=== PATIENT | male | born 1965 | race Caucasian/White ===

== ENCOUNTER 2023-03-02 12:00 | Inpatient (IN) | payer MEDICARE ==
[~2023-03-02] VITALS: Ht 182.9 cm; Wt 108.9 kg
[2023-03-02 17:17] LABS: BASOPHILS # (AUTO) 0.02 K/uL (0.00-0.20); BASOPHILS % (AUTO) 0.4 % (0.0-5.0); EOSINOPHILS # (AUTO) 0.23 K/uL (0.00-0.70); EOSINOPHILS % (AUTO) 4.1 % (0.0-8.0); HEMATOCRIT 22.8 % (42-54); IMMATURE GRANULOCYTE ABSOLUTE 0.02 K/uL (0-1); LYMPHOCYTES # (AUTO) 0.8 K/uL (1.0-4.8); LYMPHOCYTES % (AUTO) 14.7 % (21.0-51.0); MEAN CORPUSCULAR HEMOGLOBIN 30.3 pg (27.0-33.0); MEAN CORPUSCULAR HGB CONC 32.5 g/dL (32.0-36.0); MEAN CORPUSCULAR VOLUME 93.4 fL (79-99); MONOCYTES # (AUTO) 0.4 K/uL (0.1-1.0); MONOCYTES % (AUTO) 7.6 % (3.0-13.0); NEUTROPHILS # (AUTO) 4.1 K/uL (1.8-7.7); NEUTROPHILS % (AUTO) 72.8 % (40.0-77.0); PLATELET COUNT (AUTO) 113 K/uL (130-400); RED BLOOD CELL COUNT(AUTO) 2.44 MIL/uL (4.50-6.20); RED CELL DISTRIBUTION WIDTH 15.1 % (11.0-15.5); WHITE BLOOD COUNT (AUTO) 5.7 K/uL (4.8-10.8)
[2023-03-02 17:28] LABS: INR 0.98 (0.85-1.15); PROTHROMBIN TIME 11.4 SEC (9.6-11.6)
[2023-03-02 17:29] LABS: PARTIAL THROMBOPLASTIN TIME 28.5 SEC (26.3-35.5)
[2023-03-02 17:31] LABS: ALBUMIN 2.9 g/dL (3.5-5.0); BILIRUBIN,TOTAL 0.4 mg/dL (0.2-1.0); POTASSIUM 5.2 mmol/L (3.5-5.1); TOTAL PROTEIN, SERUM 6.1 g/dL (6.0-8.3)
[2023-03-02 17:38] LABS: CREATININE 13.9 mg/dL (0.5-1.5)
[2023-03-02 17:58] VITALS: BP 173/88; PULSE 93; RESP 17
[2023-03-02] MEDS ORDERED: CLON0.1T PO (18:08)
[2023-03-02] MEDS ORDERED: DOCU-116 PO (18:08)
[2023-03-02] MEDS ORDERED: FURO40TA5 PO (18:08)
[2023-03-02] MEDS ORDERED: SEVE800T27 PO (18:08)
[2023-03-02] MEDS ORDERED: DIPH25CA85 PO (18:08)
[2023-03-02] MEDS ORDERED: INSLAN SQ (18:08)
[2023-03-02] MEDS ORDERED: TAMS-1 PO (18:09)
[2023-03-06] VITALS (12 sets, daily range): BP systolic 151–199; BP diastolic 78–96; PULSE 87–94; RESP 18–19; O2SAT 96
[2023-03-06] MEDS ORDERED: BUPIVACAINE/PF 0.5% 30ML VIAL ONE (07:24)
[2023-03-06] MEDS ORDERED: LIDOCAINE 1%-EPI 1:100,000 20 ML VIAL IJ ONE (07:25)
[2023-03-06 07:29] LABS: POTASSIUM 5.3 mmol/L (3.5-5.1)
[2023-03-06] MEDS ORDERED: 0.9% NACL 500ML IV.SOLN 500 ML IV ONE (07:29)
[2023-03-06] MEDS ORDERED: MEROPENEM 1 GM VIAL ONE (07:29)
[2023-03-06] MEDS ORDERED: SUCCINYLCHOLINE 200MG/10ML SYR ONE (07:41)
[2023-03-06] MEDS ORDERED: LIDOCAINE PF 100MG/5ML (2%) SYRINGE 5ML ONE (07:41)
[2023-03-06] MEDS ORDERED: PROPOFOL 10 MG/ML 20ML VIAL IV ONE (07:42)
[2023-03-06] MEDS ORDERED: ROCURONIUM 10MG/1ML SYR 10 MG/ML ML ONE (07:42)
[2023-03-06] MEDS ORDERED: GLYCOPYRROLATE 1 MG/5 ML SYRINGE ONE (07:42)
[2023-03-06] MEDS ORDERED: FENTANYL CITRATE PF 50 MCG/1 ML 2ML VIAL ONE (07:42)
[2023-03-06] MEDS ORDERED: ONDANSETRON 4MG INJ ONE (08:09)
[2023-03-06] MEDS ORDERED: FAMOTIDINE 20MG VIAL IV ONE (08:09)
[2023-03-06] MEDS ORDERED: HEPARIN 1,000 UNIT VIAL ONE (13:40)
[2023-03-06] MEDS ORDERED: LIDOCAINE HCL 1% MDV 50ML VIAL ONE (13:40)
[2023-03-06] MEDS ORDERED: GLUCAGON 1MG KIT 1 MG ML IM PRN (16:30)
[2023-03-06] MEDS ORDERED: DEXTROSE 50%-WATER 50 ML DISP.SYRIN IV PRN (16:30)
[2023-03-06] MEDS ORDERED: GUAIFENESIN-DM 200/20 MG 10 ML PO PRN (16:30)
[2023-03-06] MEDS ORDERED: ACETAMINOPHEN 325 MG TAB PO PRN ×2 (16:30)
[2023-03-06] MEDS ORDERED: MAG/ALUM/SIMETH 30 ML UDCUP PO PRN (16:30)
[2023-03-06] MEDS ORDERED: HYDROCODONE/ACETAMINOPHEN 5/325 MG TAB PO PRN ×2 (16:30)
[2023-03-06] MEDS ORDERED: DiphenhydrAMINE HCL 50 MG/ML VIAL IV PRN (16:30)
[2023-03-06] MEDS ORDERED: LACTULOSE 20 GM/30 ML UDCUP PO PRN (16:30)
[2023-03-06] MEDS ORDERED: HYDROMORPHONE 1 MG INJ IV PRN (16:30)
[2023-03-06] MEDS ORDERED: HYDRALAZINE 20MG/ML VIAL IV PRN (16:30)
[2023-03-06] MEDS ORDERED: NITROGLYCERIN 0.4 MG SL TAB SL PRN (16:30)
[2023-03-06] MEDS: INSULIN HUMULIN R 100 UNIT/ML 3ML SQ SCH ×2 (18:52→20:56)
[2023-03-06] MEDS: AMLODIPINE 5 MG TAB PO SCH (18:56)
[2023-03-06] MEDS: FAMOTIDINE 20MG TAB PO SCH (20:55)
[2023-03-06] MEDS: HYDRALAZINE 25MG TABLET PO SCH (20:55)
[2023-03-06] MEDS ORDERED: FAMOTIDINE 20MG VIAL IV PRN (21:00)
[2023-03-06] MEDS: HEPARIN 5,000 UNIT VIAL SQ SCH ×2 (21:08→21:30)
[2023-03-07] VITALS (22 sets, daily range): BP systolic 138–175; BP diastolic 64–93; PULSE 87–101; RESP 16–19; TEMP 98–98.5; O2SAT 97–100
[2023-03-07] MEDS: HEPARIN 5,000 UNIT VIAL SQ SCH ×3 (06:09→22:31)
[2023-03-07] MEDS: INSULIN HUMULIN R 100 UNIT/ML 3ML SQ SCH ×4 (06:09→21:00)
[2023-03-07 06:27] LABS: BASOPHILS # (AUTO) 0.02 K/uL (0.00-0.20); BASOPHILS % (AUTO) 0.3 % (0.0-5.0); EOSINOPHILS # (AUTO) 0.12 K/uL (0.00-0.70); EOSINOPHILS % (AUTO) 1.5 % (0.0-8.0); HEMATOCRIT 23.3 % (42-54); IMMATURE GRANULOCYTE ABSOLUTE 0.03 K/uL (0-1); LYMPHOCYTES % (AUTO) 13.4 % (21.0-51.0); MEAN CORPUSCULAR HEMOGLOBIN 28.3 pg (27.0-33.0); MEAN CORPUSCULAR HGB CONC 32.6 g/dL (32.0-36.0); MEAN CORPUSCULAR VOLUME 86.6 fL (79-99); MONOCYTES # (AUTO) 0.5 K/uL (0.1-1.0); MONOCYTES % (AUTO) 6.2 % (3.0-13.0); NEUTROPHILS # (AUTO) 6.1 K/uL (1.8-7.7); NEUTROPHILS % (AUTO) 78.2 % (40.0-77.0); PLATELET COUNT (AUTO) 129 K/uL (130-400); RED BLOOD CELL COUNT(AUTO) 2.69 MIL/uL (4.50-6.20); RED CELL DISTRIBUTION WIDTH 17.9 % (11.0-15.5); WHITE BLOOD COUNT (AUTO) 7.8 K/uL (4.8-10.8)
[2023-03-07 06:46] LABS: ALBUMIN 3.1 g/dL (3.5-5.0); BILIRUBIN,TOTAL 0.6 mg/dL (0.2-1.0); MAGNESIUM 2.5 mg/dL (1.80-2.40); POTASSIUM 5.5 mmol/L (3.5-5.1); THYROID STIMULATING HORMONE 8.13 uIU/mL (0.36-3.74); TOTAL PROTEIN, SERUM 6.3 g/dL (6.0-8.3)
[2023-03-07 06:55] LABS: CREATININE 13.8 mg/dL (0.5-1.5)
[2023-03-07 07:08] LABS: % IRON SATURATION 29.1 % (30-44)
[2023-03-07 09:24] LABS: ALBUMIN 3.2 g/dL (3.5-5.0)
[2023-03-07 09:26] LABS: CREATININE 13.7 mg/dL (0.5-1.5)
[2023-03-07] MEDS ORDERED: HEPARIN 5,000 UNIT VIAL IJ PRN (12:30)
[2023-03-07] MEDS: SEVELAMER HCL 800 MG TABLET PO SCH ×2 (13:40→17:09)
[2023-03-07] MEDS: HYDRALAZINE 25MG TABLET PO SCH ×3 (13:40→20:09)
[2023-03-07] MEDS: AMLODIPINE 5 MG TAB PO SCH (13:40)
[2023-03-07] MEDS: EPOETIN ALFA-EPBX (NON-ESRD) 10,000 UNIT/ML VIAL SQ SCH (17:09)
[2023-03-07 21:41] LABS: HEPATITIS B SURFACE ANTIGEN Non-Reactive (Nonreactive)
[2023-03-08] VITALS (23 sets, daily range): BP systolic 141–180; BP diastolic 71–96; PULSE 87–94; RESP 16–18; TEMP 97.9–98.1; O2SAT 95–100
[2023-03-08 05:41] LABS: BASOPHILS # (AUTO) 0.02 K/uL (0.00-0.20); BASOPHILS % (AUTO) 0.3 % (0.0-5.0); EOSINOPHILS # (AUTO) 0.11 K/uL (0.00-0.70); EOSINOPHILS % (AUTO) 1.8 % (0.0-8.0); HEMATOCRIT 23.9 % (42-54); IMMATURE GRANULOCYTE ABSOLUTE 0.03 K/uL (0-1); LYMPHOCYTES # (AUTO) 0.8 K/uL (1.0-4.8); LYMPHOCYTES % (AUTO) 13.5 % (21.0-51.0); MEAN CORPUSCULAR HEMOGLOBIN 28.6 pg (27.0-33.0); MEAN CORPUSCULAR HGB CONC 32.6 g/dL (32.0-36.0); MEAN CORPUSCULAR VOLUME 87.5 fL (79-99); MONOCYTES # (AUTO) 0.5 K/uL (0.1-1.0); MONOCYTES % (AUTO) 7.6 % (3.0-13.0); NEUTROPHILS # (AUTO) 4.7 K/uL (1.8-7.7); NEUTROPHILS % (AUTO) 76.3 % (40.0-77.0); PLATELET COUNT (AUTO) 126 K/uL (130-400); RED BLOOD CELL COUNT(AUTO) 2.73 MIL/uL (4.50-6.20); RED CELL DISTRIBUTION WIDTH 17.4 % (11.0-15.5); WHITE BLOOD COUNT (AUTO) 6.2 K/uL (4.8-10.8)
[2023-03-08] MEDS: HEPARIN 5,000 UNIT VIAL SQ SCH ×2 (06:07→16:38)
[2023-03-08 06:22] LABS: ALBUMIN 3.2 g/dL (3.5-5.0); BILIRUBIN,TOTAL 0.6 mg/dL (0.2-1.0); PHOSPHORUS 9.3 mg/dL (2.5-4.9); POTASSIUM 4.5 mmol/L (3.5-5.1); TOTAL PROTEIN, SERUM 6.3 g/dL (6.0-8.3)
[2023-03-08 06:28] LABS: CREATININE 10.9 mg/dL (0.5-1.5)
[2023-03-08] MEDS: INSULIN HUMULIN R 100 UNIT/ML 3ML SQ SCH ×4 (06:58→21:12)
[2023-03-08] MEDS: AMLODIPINE 5 MG TAB PO SCH (08:39)
[2023-03-08] MEDS: SEVELAMER HCL 800 MG TABLET PO SCH ×3 (08:39→16:48)
[2023-03-08] MEDS: HYDRALAZINE 25MG TABLET PO SCH ×2 (08:39→21:11)
[2023-03-08] MEDS: ONDANSETRON 4MG INJ IV PRN (12:27)
[2023-03-08] MEDS ORDERED: HEPARIN 5,000 UNIT VIAL IJ STA (15:11)
[2023-03-08] MEDS: FAMOTIDINE 20MG TAB PO SCH (21:11)
[2023-03-09] VITALS (21 sets, daily range): BP systolic 137–173; BP diastolic 72–96; PULSE 82–96; RESP 16–20; TEMP 98.1–98.2; O2SAT 96–98
[2023-03-09] MEDS ORDERED: HEPARIN 5,000 UNIT VIAL SQ SCH
[2023-03-09 06:05] LABS: BASOPHILS # (AUTO) 0.03 K/uL (0.00-0.20); BASOPHILS % (AUTO) 0.4 % (0.0-5.0); EOSINOPHILS # (AUTO) 0.16 K/uL (0.00-0.70); EOSINOPHILS % (AUTO) 2.4 % (0.0-8.0); HEMATOCRIT 23.4 % (42-54); IMMATURE GRANULOCYTE ABSOLUTE 0.02 K/uL (0-1); LYMPHOCYTES # (AUTO) 1.1 K/uL (1.0-4.8); MEAN CORPUSCULAR HGB CONC 32.5 g/dL (32.0-36.0); MEAN CORPUSCULAR VOLUME 89.3 fL (79-99); MONOCYTES # (AUTO) 0.6 K/uL (0.1-1.0); MONOCYTES % (AUTO) 8.9 % (3.0-13.0); NEUTROPHILS # (AUTO) 4.9 K/uL (1.8-7.7); PLATELET COUNT (AUTO) 126 K/uL (130-400); RED BLOOD CELL COUNT(AUTO) 2.62 MIL/uL (4.50-6.20); RED CELL DISTRIBUTION WIDTH 17.2 % (11.0-15.5); WHITE BLOOD COUNT (AUTO) 6.8 K/uL (4.8-10.8)
[2023-03-09] MEDS: INSULIN HUMULIN R 100 UNIT/ML 3ML SQ SCH ×4 (06:28→20:36)
[2023-03-09 06:33] LABS: ALBUMIN 2.9 g/dL (3.5-5.0); BILIRUBIN,TOTAL 0.5 mg/dL (0.2-1.0); POTASSIUM 4.1 mmol/L (3.5-5.1)
[2023-03-09 06:35] LABS: CREATININE 8.6 mg/dL (0.5-1.5)
[2023-03-09] MEDS: SEVELAMER HCL 800 MG TABLET PO SCH ×3 (08:50→17:35)
[2023-03-09] MEDS: HEPARIN 5,000 UNIT VIAL SQ SCH ×2 (08:52→16:00)
[2023-03-09] MEDS: HYDRALAZINE 25MG TABLET PO SCH ×3 (09:00→20:37)
[2023-03-09] MEDS: AMLODIPINE 5 MG TAB PO SCH (09:00)
[2023-03-09] MEDS ORDERED: HEPARIN 5,000 UNIT VIAL IJ ONE (14:00)
[2023-03-09] MEDS: EPOETIN ALFA-EPBX (NON-ESRD) 10,000 UNIT/ML VIAL SQ SCH (18:11)
[2023-03-10] VITALS (8 sets, daily range): BP systolic 153–160; BP diastolic 73–101; PULSE 87–100; RESP 18–20; O2SAT 98
[2023-03-10] MEDS: HEPARIN 5,000 UNIT VIAL SQ SCH ×3 (01:46→16:54)
[2023-03-10] MEDS: INSULIN HUMULIN R 100 UNIT/ML 3ML SQ SCH ×4 (05:26→20:28)
[2023-03-10 05:39] LABS: BASOPHILS # (AUTO) 0.02 K/uL (0.00-0.20); BASOPHILS % (AUTO) 0.3 % (0.0-5.0); EOSINOPHILS # (AUTO) 0.22 K/uL (0.00-0.70); EOSINOPHILS % (AUTO) 3.4 % (0.0-8.0); HEMATOCRIT 23.2 % (42-54); IMMATURE GRANULOCYTE ABSOLUTE 0.02 K/uL (0-1); LYMPHOCYTES # (AUTO) 0.9 K/uL (1.0-4.8); LYMPHOCYTES % (AUTO) 13.6 % (21.0-51.0); MEAN CORPUSCULAR HEMOGLOBIN 28.6 pg (27.0-33.0); MEAN CORPUSCULAR HGB CONC 32.3 g/dL (32.0-36.0); MEAN CORPUSCULAR VOLUME 88.5 fL (79-99); MONOCYTES # (AUTO) 0.6 K/uL (0.1-1.0); MONOCYTES % (AUTO) 9.8 % (3.0-13.0); NEUTROPHILS # (AUTO) 4.7 K/uL (1.8-7.7); NEUTROPHILS % (AUTO) 72.6 % (40.0-77.0); PLATELET COUNT (AUTO) 124 K/uL (130-400); RED BLOOD CELL COUNT(AUTO) 2.62 MIL/uL (4.50-6.20); RED CELL DISTRIBUTION WIDTH 16.7 % (11.0-15.5); WHITE BLOOD COUNT (AUTO) 6.5 K/uL (4.8-10.8)
[2023-03-10 06:15] LABS: CREATININE 7.1 mg/dL (0.5-1.5); PHOSPHORUS 5.5 mg/dL (2.5-4.9); POTASSIUM 3.6 mmol/L (3.5-5.1)
[2023-03-10] MEDS: HYDRALAZINE 25MG TABLET PO SCH ×3 (09:04→20:30)
[2023-03-10] MEDS: SEVELAMER HCL 800 MG TABLET PO SCH ×3 (09:04→16:55)
[2023-03-10] MEDS: AMLODIPINE 5 MG TAB PO SCH (09:04)
[2023-03-10] MEDS: FAMOTIDINE 20MG TAB PO SCH (20:29)
[2023-03-11] VITALS (9 sets, daily range): BP systolic 127–157; BP diastolic 71–85; PULSE 87–98; RESP 19–20; O2SAT 97–98
[2023-03-11] MEDS: HEPARIN 5,000 UNIT VIAL SQ SCH ×4 (00:51→23:58)
[2023-03-11] MEDS: INSULIN HUMULIN R 100 UNIT/ML 3ML SQ SCH ×4 (05:42→20:22)
[2023-03-11 06:10] LABS: BASOPHILS # (AUTO) 0.02 K/uL (0.00-0.20); BASOPHILS % (AUTO) 0.3 % (0.0-5.0); EOSINOPHILS # (AUTO) 0.23 K/uL (0.00-0.70); EOSINOPHILS % (AUTO) 3.7 % (0.0-8.0); HEMATOCRIT 22.8 % (42-54); IMMATURE GRANULOCYTE ABSOLUTE 0.02 K/uL (0-1); LYMPHOCYTES # (AUTO) 0.8 K/uL (1.0-4.8); LYMPHOCYTES % (AUTO) 13.5 % (21.0-51.0); MEAN CORPUSCULAR HEMOGLOBIN 29.2 pg (27.0-33.0); MEAN CORPUSCULAR HGB CONC 32.9 g/dL (32.0-36.0); MEAN CORPUSCULAR VOLUME 88.7 fL (79-99); MONOCYTES # (AUTO) 0.7 K/uL (0.1-1.0); MONOCYTES % (AUTO) 10.9 % (3.0-13.0); NEUTROPHILS # (AUTO) 4.4 K/uL (1.8-7.7); NEUTROPHILS % (AUTO) 71.3 % (40.0-77.0); PLATELET COUNT (AUTO) 124 K/uL (130-400); RED BLOOD CELL COUNT(AUTO) 2.57 MIL/uL (4.50-6.20); WHITE BLOOD COUNT (AUTO) 6.1 K/uL (4.8-10.8)
[2023-03-11 06:26] LABS: PHOSPHORUS 6.2 mg/dL (2.5-4.9)
[2023-03-11] MEDS: SEVELAMER HCL 800 MG TABLET PO SCH ×3 (08:21→16:52)
[2023-03-11] MEDS: HYDRALAZINE 25MG TABLET PO SCH ×3 (08:24→20:23)
[2023-03-11] MEDS: AMLODIPINE 5 MG TAB PO SCH (08:24)
[2023-03-12] VITALS (22 sets, daily range): BP systolic 139–186; BP diastolic 64–100; PULSE 85–105; RESP 16–20; TEMP 98–98.2; O2SAT 93–97
[2023-03-12 05:03] LABS: BASOPHILS # (AUTO) 0.02 K/uL (0.00-0.20); BASOPHILS % (AUTO) 0.3 % (0.0-5.0); EOSINOPHILS # (AUTO) 0.24 K/uL (0.00-0.70); EOSINOPHILS % (AUTO) 3.9 % (0.0-8.0); HEMATOCRIT 21.4 % (42-54); IMMATURE GRANULOCYTE ABSOLUTE 0.02 K/uL (0-1); LYMPHOCYTES % (AUTO) 16.7 % (21.0-51.0); MEAN CORPUSCULAR HEMOGLOBIN 28.9 pg (27.0-33.0); MEAN CORPUSCULAR HGB CONC 31.8 g/dL (32.0-36.0); MEAN CORPUSCULAR VOLUME 91.1 fL (79-99); MONOCYTES # (AUTO) 0.7 K/uL (0.1-1.0); MONOCYTES % (AUTO) 10.6 % (3.0-13.0); NEUTROPHILS # (AUTO) 4.2 K/uL (1.8-7.7); NEUTROPHILS % (AUTO) 68.2 % (40.0-77.0); PLATELET COUNT (AUTO) 130 K/uL (130-400); RED BLOOD CELL COUNT(AUTO) 2.35 MIL/uL (4.50-6.20); RED CELL DISTRIBUTION WIDTH 17.3 % (11.0-15.5); WHITE BLOOD COUNT (AUTO) 6.1 K/uL (4.8-10.8)
[2023-03-12 05:11] LABS: PHOSPHORUS 6.5 mg/dL (2.5-4.9); POTASSIUM 3.6 mmol/L (3.5-5.1)
[2023-03-12 05:46] LABS: CREATININE 10.6 mg/dL (0.5-1.5)
[2023-03-12] MEDS: INSULIN HUMULIN R 100 UNIT/ML 3ML SQ SCH ×4 (06:09→21:30)
[2023-03-12] MEDS ORDERED: EPOETIN ALFA-EPBX (NON-ESRD) 10,000 UNIT/ML VIAL SQ SCH (08:00)
[2023-03-12] MEDS: DIPHENHYDRAMINE HCL 25 MG CAPSULE PO PRN (09:29)
[2023-03-12] MEDS: AMLODIPINE 5 MG TAB PO SCH (11:12)
[2023-03-12] MEDS: HYDRALAZINE 25MG TABLET PO SCH ×3 (11:13→21:29)
[2023-03-12] MEDS: SEVELAMER HCL 800 MG TABLET PO SCH ×3 (11:13→17:42)
[2023-03-12] MEDS: HEPARIN 5,000 UNIT VIAL SQ SCH ×3 (11:22→23:24)
[2023-03-12] MEDS ORDERED: HEPARIN 5,000 UNIT VIAL IV SCH (12:00)
[2023-03-12] MEDS: EPOETIN ALFA-EPBX (NON-ESRD) 10,000 UNIT/ML VIAL SQ SCH (17:41)
[2023-03-12] MEDS ORDERED: PEG 3350/NA SULF,BICARB,CL/KCL 4000 ML SOLN PO ONE (17:50)
[2023-03-12] MEDS ORDERED: NEOMYCIN SULFATE 500 MG TAB PO SCH ×2 (19:00→23:00)
[2023-03-12] MEDS: METRONIDAZOLE 500 MG TABLET PO SCH ×2 (19:40→20:27)
[2023-03-12] MEDS: FAMOTIDINE 20MG TAB PO SCH (21:28)
[2023-03-12] MEDS ORDERED: METRONIDAZOLE 500 MG TABLET PO SCH (23:00)
[2023-03-12] MEDS: ONDANSETRON 4MG INJ IV PRN (23:23)
[2023-03-13 04:00] VITALS: BP 140/69; PULSE 101; RESP 18
[2023-03-13 05:11] LABS: HEMATOCRIT 25.2 % (42-54); MEAN CORPUSCULAR HEMOGLOBIN 28.9 pg (27.0-33.0); MEAN CORPUSCULAR HGB CONC 32.1 g/dL (32.0-36.0); RED BLOOD CELL COUNT(AUTO) 2.8 MIL/uL (4.50-6.20); RED CELL DISTRIBUTION WIDTH 16.9 % (11.0-15.5); WHITE BLOOD COUNT (AUTO) 6.9 K/uL (4.8-10.8)
[2023-03-13 05:20] LABS: HEMOGLOBIN A1C 6.2 % (4.0-6.0)
[2023-03-13 05:24] LABS: ALBUMIN 3.1 g/dL (3.5-5.0); BILIRUBIN,TOTAL 0.5 mg/dL (0.2-1.0); POTASSIUM 3.6 mmol/L (3.5-5.1); TOTAL PROTEIN, SERUM 5.9 g/dL (6.0-8.3)
[2023-03-13] MEDS: INSULIN HUMULIN R 100 UNIT/ML 3ML SQ SCH ×4 (06:01→21:00)
[2023-03-13 07:51] VITALS: BP 106/53; PULSE 101; RESP 18
[2023-03-13 08:00] VITALS: O2SAT 99
[2023-03-13] MEDS: SEVELAMER HCL 800 MG TABLET PO SCH ×3 (08:00→17:00)
[2023-03-13] MEDS: HEPARIN 5,000 UNIT VIAL SQ SCH ×3 (08:00→23:10)
[2023-03-13] MEDS: HYDRALAZINE 25MG TABLET PO SCH ×3 (09:00→19:58)
[2023-03-13] MEDS: AMLODIPINE 5 MG TAB PO SCH (09:00)
[2023-03-13 11:11] VITALS: BP 151/74; PULSE 94; RESP 17
[2023-03-13 14:03] LABS: BASOPHILS # (AUTO) 0.03 K/uL (0.00-0.20); BASOPHILS % (AUTO) 0.5 % (0.0-5.0); EOSINOPHILS # (AUTO) 0.21 K/uL (0.00-0.70); EOSINOPHILS % (AUTO) 3.3 % (0.0-8.0); HEMATOCRIT 27.3 % (42-54); IMMATURE GRANULOCYTE ABSOLUTE 0.03 K/uL (0-1); LYMPHOCYTES # (AUTO) 0.9 K/uL (1.0-4.8); LYMPHOCYTES % (AUTO) 13.9 % (21.0-51.0); MEAN CORPUSCULAR HEMOGLOBIN 28.6 pg (27.0-33.0); MEAN CORPUSCULAR HGB CONC 31.5 g/dL (32.0-36.0); MEAN CORPUSCULAR VOLUME 90.7 fL (79-99); MONOCYTES # (AUTO) 0.6 K/uL (0.1-1.0); MONOCYTES % (AUTO) 8.8 % (3.0-13.0); NEUTROPHILS # (AUTO) 4.6 K/uL (1.8-7.7); PLATELET COUNT (AUTO) 150 K/uL (130-400); RED BLOOD CELL COUNT(AUTO) 3.01 MIL/uL (4.50-6.20); RED CELL DISTRIBUTION WIDTH 17.2 % (11.0-15.5); WHITE BLOOD COUNT (AUTO) 6.4 K/uL (4.8-10.8)
[2023-03-13 14:20] LABS: ALBUMIN 3.4 g/dL (3.5-5.0); BILIRUBIN,TOTAL 0.5 mg/dL (0.2-1.0); PHOSPHORUS 5.9 mg/dL (2.5-4.9); POTASSIUM 3.8 mmol/L (3.5-5.1); TOTAL PROTEIN, SERUM 6.3 g/dL (6.0-8.3)
[2023-03-13 14:25] LABS: CREATININE 8.8 mg/dL (0.5-1.5)
[2023-03-13 16:28] VITALS: BP 160/70; PULSE 85; RESP 18
[2023-03-13] MEDS: DIPHENHYDRAMINE HCL 25 MG CAPSULE PO PRN (19:58)
[2023-03-13 20:00] VITALS: BP 151/77; PULSE 94; RESP 19; O2SAT 95
[2023-03-14] VITALS (42 sets, daily range): BP systolic 120–185; BP diastolic 61–90; PULSE 74–96; RESP 9–19; TEMP 96.8–97; O2SAT 98–99
[2023-03-14 01:49] LABS: SARS-CoV-2, RNA, NAAT NEGATIVE SARS CoV-2 (NEGATIVE)
[2023-03-14] MEDS: INSULIN HUMULIN R 100 UNIT/ML 3ML SQ SCH ×4 (06:07→20:06)
[2023-03-14 06:18] LABS: MEAN CORPUSCULAR HGB CONC 31.9 g/dL (32.0-36.0); MEAN CORPUSCULAR VOLUME 90.9 fL (79-99); RED BLOOD CELL COUNT(AUTO) 2.86 MIL/uL (4.50-6.20); WHITE BLOOD COUNT (AUTO) 6.6 K/uL (4.8-10.8)
[2023-03-14] MEDS ORDERED: SUCCINYLCHOLINE 200MG/10ML SYR ONE (06:27)
[2023-03-14] MEDS ORDERED: LIDOCAINE PF 100MG/5ML (2%) SYRINGE 5ML ONE (06:27)
[2023-03-14] MEDS ORDERED: DEXAMETHASONE SOD PHOSPHATE 10MG/ML 1ML VIAL ONE (06:27)
[2023-03-14] MEDS ORDERED: PROPOFOL 10 MG/ML 20ML VIAL IV ONE (06:28)
[2023-03-14] MEDS ORDERED: ONDANSETRON 4MG INJ ONE ×2 (06:28→11:31)
[2023-03-14] MEDS ORDERED: GLYCOPYRROLATE 1 MG/5 ML SYRINGE ONE (06:28)
[2023-03-14] MEDS ORDERED: MIDAZOLAM HCL 1 MG/ML 2ML VIAL ONE (06:29)
[2023-03-14] MEDS ORDERED: ROCURONIUM 10MG/1ML SYR 10 MG/ML ML ONE (06:29)
[2023-03-14] MEDS ORDERED: NEOSTIGMINE 5MG/5ML SYR IV ONE (06:29)
[2023-03-14] MEDS ORDERED: FENTANYL CITRATE PF 50 MCG/1 ML 2ML VIAL ONE ×2 (06:29→08:06)
[2023-03-14] MEDS ORDERED: DEXAMETHASONE SOD PHOSPHATE 4 MG/ML 1ML VIAL ONE (06:33)
[2023-03-14] MEDS ORDERED: ROPIVACAINE 0.5% 5MG/ML 30ML IJ ONE (06:42)
[2023-03-14 06:50] LABS: ALBUMIN 3.2 g/dL (3.5-5.0); BILIRUBIN,TOTAL 0.5 mg/dL (0.2-1.0); PHOSPHORUS 6.2 mg/dL (2.5-4.9); POTASSIUM 3.9 mmol/L (3.5-5.1); TOTAL PROTEIN, SERUM 6.2 g/dL (6.0-8.3)
[2023-03-14] MEDS ORDERED: PHENYLEPHRINE HCL 10 MG/ML 1ML VIAL IV ONE (06:55)
[2023-03-14] MEDS ORDERED: ALBUMIN (HUMAN) 25% 50 ML IV ONE (07:03)
[2023-03-14] MEDS ORDERED: LIDOCAINE HCL 1% MDV 50ML VIAL ONE (07:07)
[2023-03-14] MEDS ORDERED: BUPIVACAINE/PF 0.5% 30ML VIAL ONE (07:07)
[2023-03-14] MEDS ORDERED: INDOCYANINE GREEN 25 MG VIAL IJ ONE (07:10)
[2023-03-14] MEDS ORDERED: MEROPENEM 1 GM VIAL ONE (07:51)
[2023-03-14] MEDS: SEVELAMER HCL 800 MG TABLET PO SCH ×3 (08:00→16:53)
[2023-03-14] MEDS: HEPARIN 5,000 UNIT VIAL SQ SCH ×2 (08:00→16:49)
[2023-03-14] MEDS: AMLODIPINE 5 MG TAB PO SCH (09:00)
[2023-03-14] MEDS: HYDRALAZINE 25MG TABLET PO SCH ×3 (09:00→20:04)
[2023-03-14] MEDS ORDERED: SUGAMMADEX SODIUM 200 MG/2 ML VIAL IV ONE (10:45)
[2023-03-14] MEDS ORDERED: EPHEDRINE SULFATE 50 MG/ML AMPULE ONE (10:55)
[2023-03-14] MEDS ORDERED: OXYCODONE HCL 20 MG/ML ORAL.CONC 0.25ML PO PRN (11:00)
[2023-03-14] MEDS ORDERED: MEPERIDINE-PF 25 MG/ML SYG ONE (11:31)
[2023-03-14] MEDS: EPOETIN ALFA-EPBX (NON-ESRD) 10,000 UNIT/ML VIAL SQ SCH (16:49)
[2023-03-14] MEDS: HYDROMORPHONE 0.5 MG SYG (0.5MG/0.5ML) IVP PRN (17:03)
[2023-03-14] MEDS: FAMOTIDINE 20MG TAB PO SCH (20:03)
[2023-03-14] MEDS ORDERED: HEPARIN 5,000 UNIT VIAL SQ SCH (22:00)
[2023-03-15] VITALS (7 sets, daily range): BP systolic 104–158; BP diastolic 58–70; PULSE 82–94; RESP 17–20; O2SAT 96–99
[2023-03-15] MEDS: HEPARIN 5,000 UNIT VIAL SQ SCH ×3 (00:45→17:08)
[2023-03-15] MEDS: ONDANSETRON 4MG INJ IV PRN (04:12)
[2023-03-15 05:16] LABS: HEMATOCRIT 25.8 % (42-54); MEAN CORPUSCULAR HEMOGLOBIN 29.1 pg (27.0-33.0); MEAN CORPUSCULAR HGB CONC 31.8 g/dL (32.0-36.0); MEAN CORPUSCULAR VOLUME 91.5 fL (79-99); RED BLOOD CELL COUNT(AUTO) 2.82 MIL/uL (4.50-6.20); RED CELL DISTRIBUTION WIDTH 17.2 % (11.0-15.5); WHITE BLOOD COUNT (AUTO) 9.2 K/uL (4.8-10.8)
[2023-03-15 05:37] LABS: BILIRUBIN,TOTAL 0.5 mg/dL (0.2-1.0); TOTAL PROTEIN, SERUM 5.7 g/dL (6.0-8.3)
[2023-03-15] MEDS: INSULIN HUMULIN R 100 UNIT/ML 3ML SQ SCH ×4 (06:00→21:31)
[2023-03-15] MEDS: HYDRALAZINE 25MG TABLET PO SCH ×3 (08:44→21:00)
[2023-03-15] MEDS: SEVELAMER HCL 800 MG TABLET PO SCH ×3 (08:45→17:07)
[2023-03-15] MEDS: AMLODIPINE 5 MG TAB PO SCH (08:46)
[2023-03-15] MEDS: HYDROMORPHONE 0.5 MG SYG (0.5MG/0.5ML) IVP PRN ×2 (11:10→18:05)
[2023-03-15] MEDS: DIPHENHYDRAMINE HCL 25 MG CAPSULE PO PRN (22:05)
[2023-03-16] VITALS (21 sets, daily range): BP systolic 131–171; BP diastolic 65–87; PULSE 87–101; RESP 16–20; TEMP 97–97.5; O2SAT 89
[2023-03-16] MEDS: HEPARIN 5,000 UNIT VIAL SQ SCH ×3 (00:41→16:41)
[2023-03-16 05:07] LABS: BASOPHILS # (AUTO) 0.02 K/uL (0.00-0.20); BASOPHILS % (AUTO) 0.2 % (0.0-5.0); EOSINOPHILS # (AUTO) 0.22 K/uL (0.00-0.70); EOSINOPHILS % (AUTO) 2.6 % (0.0-8.0); HEMATOCRIT 25.8 % (42-54); IMMATURE GRANULOCYTE ABSOLUTE 0.04 K/uL (0-1); LYMPHOCYTES # (AUTO) 0.9 K/uL (1.0-4.8); LYMPHOCYTES % (AUTO) 10.7 % (21.0-51.0); MEAN CORPUSCULAR HEMOGLOBIN 29.1 pg (27.0-33.0); MEAN CORPUSCULAR HGB CONC 31.8 g/dL (32.0-36.0); MEAN CORPUSCULAR VOLUME 91.5 fL (79-99); MONOCYTES # (AUTO) 0.7 K/uL (0.1-1.0); MONOCYTES % (AUTO) 8.3 % (3.0-13.0); NEUTROPHILS # (AUTO) 6.5 K/uL (1.8-7.7); NEUTROPHILS % (AUTO) 77.7 % (40.0-77.0); PLATELET COUNT (AUTO) 152 K/uL (130-400); RED BLOOD CELL COUNT(AUTO) 2.82 MIL/uL (4.50-6.20); RED CELL DISTRIBUTION WIDTH 17.8 % (11.0-15.5); WHITE BLOOD COUNT (AUTO) 8.4 K/uL (4.8-10.8)
[2023-03-16 05:23] LABS: BILIRUBIN,TOTAL 0.5 mg/dL (0.2-1.0); PHOSPHORUS 6.3 mg/dL (2.5-4.9); POTASSIUM 3.8 mmol/L (3.5-5.1); TOTAL PROTEIN, SERUM 5.9 g/dL (6.0-8.3)
[2023-03-16 05:25] LABS: CREATININE 9.4 mg/dL (0.5-1.5)
[2023-03-16] MEDS: INSULIN HUMULIN R 100 UNIT/ML 3ML SQ SCH ×3 (06:01→16:42)
[2023-03-16] MEDS: AMLODIPINE 5 MG TAB PO SCH (09:16)
[2023-03-16] MEDS: SEVELAMER HCL 800 MG TABLET PO SCH ×4 (09:16→16:30)
[2023-03-16] MEDS: HYDRALAZINE 25MG TABLET PO SCH ×2 (09:17→13:43)
[2023-03-16] MEDS ORDERED: AMLO-258 PO (11:06)
[2023-03-16] MEDS: EPOETIN ALFA-EPBX (NON-ESRD) 10,000 UNIT/ML VIAL SQ SCH (16:30)
== END 2023-03-16 17:00 | disposition home or self-care (01) | DRG 329 ==
LOC: DAHIP 03-06 06:19 → 3DH 03-06 16:16
PROVIDERS: ADMIT Hospitalist; ATTEND Hospitalist
PROC: 0JH63XZ Insertion of Tunneled Vascular Access Device into Chest Subcutaneous Tissue and Fascia, Percutaneous Approach (ICD-10-PCS; 2023-03-06)
PROC: 02H633Z Insertion of Infusion Device into Right Atrium, Percutaneous Approach (ICD-10-PCS; 2023-03-06)
PROC: B5181ZA Fluoroscopy of Superior Vena Cava using Low Osmolar Contrast, Guidance (ICD-10-PCS; 2023-03-06)
PROC: B548ZZA Ultrasonography of Superior Vena Cava, Guidance (ICD-10-PCS; 2023-03-06)
PROC: 30233N1 Transfusion of Nonautologous Red Blood Cells into Peripheral Vein, Percutaneous Approach (ICD-10-PCS; 2023-03-06)
PROC: 5A1D70Z Performance of Urinary Filtration, Intermittent, Less than 6 Hours Per Day (ICD-10-PCS; 2023-03-07)
PROC: 5A1D70Z Performance of Urinary Filtration, Intermittent, Less than 6 Hours Per Day (ICD-10-PCS; 2023-03-08)
PROC: 5A1D70Z Performance of Urinary Filtration, Intermittent, Less than 6 Hours Per Day (ICD-10-PCS; 2023-03-09)
PROC: 5A1D70Z Performance of Urinary Filtration, Intermittent, Less than 6 Hours Per Day (ICD-10-PCS; 2023-03-12)
PROC: 8E0W4CZ Robotic Assisted Procedure of Trunk Region, Percutaneous Endoscopic Approach (ICD-10-PCS; 2023-03-14)
PROC: 5A1D70Z Performance of Urinary Filtration, Intermittent, Less than 6 Hours Per Day (ICD-10-PCS; 2023-03-14)
PROC: 0DTF4ZZ Resection of Right Large Intestine, Percutaneous Endoscopic Approach (ICD-10-PCS; principal; 2023-03-14 07:00)
PROC: 5A1D70Z Performance of Urinary Filtration, Intermittent, Less than 6 Hours Per Day (ICD-10-PCS; 2023-03-16)
DX: C18.3 Malignant neoplasm of hepatic flexure (principal); N18.6 End stage renal disease; I12.0 Hypertensive chronic kidney disease with stage 5 chronic kidney disease or end stage renal disease; E87.70 Fluid overload, unspecified; Z20.822 Contact with and (suspected) exposure to COVID-19; D63.1 Anemia in chronic kidney disease; E11.22 Type 2 diabetes mellitus with diabetic chronic kidney disease; E87.5 Hyperkalemia; D50.9 Iron deficiency anemia, unspecified; E66.09 Other obesity due to excess calories; E78.5 Hyperlipidemia, unspecified; Z53.9 Procedure and treatment not carried out, unspecified reason; Z85.038 Personal history of other malignant neoplasm of large intestine; Z99.2 Dependence on renal dialysis; Z68.32 Body mass index [BMI] 32.0-32.9, adult
CPT/HCPCS: 36415; 36430; 36558; 71045; 77001; 80048; 80053; 80061; 82040; 82565; 82728; 82948; 83036; 83540; 83550; 83735; 84100; 84443; 84520; 85014; 85018; 85025; 85027; 85045; 85610; 85730; 86701; 86704; 86706; 86850; 86900; 86901; 86923; 87340; 87390; 87520; 87635; 88307; 90935; 93005; A4344; C1750; G0378; J0330; J0360; J1100; J1170; J1644; J1815; J2001; J2175; J2185; J2250; J2371; J2405; J2704; J2710; J2795; J3010; J3490; J7030; J7040; J7120; P9016; P9047; Q0163; A4215; A4216; A4221; A4222; A4223; A4600; A4649; A4663; A4930; A6260; C1758; C1769; C1894; G0168; Q5106

== ENCOUNTER 2023-11-21 06:12 | Day surgery (SDC) | payer OTHER ==
[2023-11-21] VITALS (12 sets, daily range): BP systolic 136–162; BP diastolic 71–94; PULSE 66–84; RESP 14–16
[~2023-11-21] VITALS: Ht 182.9 cm; Wt 113.4 kg
[~2023-11-21 06:12] MED LIST: FURO40TA5 PO; INSLAN SQ; SUCR500T PO; TAMS-1 PO
[2023-11-21] MEDS ORDERED: LABE200T7 PO (07:13)
[2023-11-21] MEDS ORDERED: LACT10SO85 PO (07:14)
[2023-11-21] MEDS: 0.9%NACL 1000ML 1,000 ML IV ONE (07:16)
[2023-11-21] MEDS ORDERED: PROPOFOL 10 MG/ML 20ML VIAL IV ONE (08:43)
[2023-11-21] MEDS ORDERED: GLYCOPYRROLATE 0.2 MG/ML 5 ML VIAL ONE (09:02)
== END 2023-11-21 10:55 | disposition home or self-care (01) ==
LOC: ENDO 06:12 → DAH 06:12 → ENDO 10:55
PROVIDERS: ATTEND Internal Medicine Gastroenterology
DX: Z08 Encounter for follow-up examination after completed treatment for malignant neoplasm (principal); R12 Heartburn; K63.5 Polyp of colon; K57.30 Diverticulosis of large intestine without perforation or abscess without bleeding; K44.9 Diaphragmatic hernia without obstruction or gangrene; K29.70 Gastritis, unspecified, without bleeding; K74.69 Other cirrhosis of liver; R93.2 Abnormal findings on diagnostic imaging of liver and biliary tract; E66.9 Obesity, unspecified; E11.22 Type 2 diabetes mellitus with diabetic chronic kidney disease; I12.0 Hypertensive chronic kidney disease with stage 5 chronic kidney disease or end stage renal disease; N18.6 End stage renal disease; Z85.038 Personal history of other malignant neoplasm of large intestine; Z80.0 Family history of malignant neoplasm of digestive organs; Z99.2 Dependence on renal dialysis; Z98.890 Other specified postprocedural states; Z68.34 Body mass index [BMI] 34.0-34.9, adult
CPT/HCPCS: 45380; 45385; 43239; 82948 ×2; J7030; J2704; J3490; A4620; A4649; A4215 ×2; A4223; A4222; A4221; A4663; A4606; 45382

== ENCOUNTER 2024-04-29 06:28 | Day surgery (SDC) | payer MEDICARE ==
[2024-04-29] VITALS (10 sets, daily range): BP systolic 84–123; BP diastolic 42–58; PULSE 61–71; RESP 15–17; TEMP 96.6–97.4
[~2024-04-29] VITALS: Ht 182.9 cm; Wt 113.4 kg
[~2024-04-29 06:28] MED LIST changes: +0.9%NACL 1000ML 0 ML IV ONE; +CLON0.1T PO; +FURO20TA4 PO; -FURO40TA5 PO; +LABE200T7 PO; +SACU1TAB PO; -SUCR500T PO
[2024-04-29] MEDS ORDERED: SIMETHICONE 40 MG/0.6 ML ML ONE (07:44)
[2024-04-29] MEDS ORDERED: 0.9% NACL 500ML IV.SOLN 500 ML IV ONE (08:00)
[2024-04-29] MEDS: 0.9% NACL 500ML IV.SOLN 500 ML IV ONE (08:08)
[2024-04-29 08:10] LABS: BASOPHILS # (AUTO) 0.04 K/uL (0.00-0.20); BASOPHILS % (AUTO) 0.6 % (0.0-5.0); HEMATOCRIT 36.1 % (42-54); IMMATURE GRANULOCYTE ABSOLUTE 0.02 K/uL (0-1); LYMPHOCYTES # (AUTO) 0.5 K/uL (1.0-4.8); LYMPHOCYTES % (AUTO) 7.9 % (21.0-51.0); MEAN CORPUSCULAR HEMOGLOBIN 32.2 pg (27.0-33.0); MEAN CORPUSCULAR HGB CONC 33.5 g/dL (32.0-36.0); MONOCYTES # (AUTO) 0.7 K/uL (0.1-1.0); MONOCYTES % (AUTO) 10.3 % (3.0-13.0); NEUTROPHILS # (AUTO) 5.2 K/uL (1.8-7.7); NEUTROPHILS % (AUTO) 77.9 % (40.0-77.0); PLATELET COUNT (AUTO) 104 K/uL (130-400); RED BLOOD CELL COUNT(AUTO) 3.76 MIL/uL (4.50-6.20); RED CELL DISTRIBUTION WIDTH 15.9 % (11.0-15.5); WHITE BLOOD COUNT (AUTO) 6.6 K/uL (4.8-10.8)
[2024-04-29 08:25] LABS: INR 1.22 (0.85-1.15)
[2024-04-29 08:28] LABS: % IRON SATURATION 38.6 % (30-44)
[2024-04-29 08:41] LABS: ALBUMIN 3.9 g/dL (3.5-5.0); BILIRUBIN,TOTAL 1.3 mg/dL (0.2-1.0); CREATININE 7.9 mg/dL (0.5-1.3); TOTAL PROTEIN, SERUM 7.4 g/dL (6.0-8.3)
[2024-04-29] MEDS ORDERED: proPOFol 10 MG/ML 20ML VIAL IV ONE (09:47)
[2024-04-29 17:08] LABS: HEPATITIS A IGM ANTIBODY Non-Reactive (Nonreactive); HEPATITIS B SURFACE ANTIGEN Non-Reactive (Nonreactive)
[2024-04-29 17:09] LABS: HEPATITIS B CORE IGM ANTIBODY Non-Reactive (Negative); HEPATITIS C ANTIBODY Non-Reactive (Nonreactive)
== END 2024-04-29 11:03 | disposition home or self-care (01) ==
LOC: ENDO 06:28 → DAH 06:28 → ENDO 11:03
PROVIDERS: ATTEND Internal Medicine Gastroenterology
DX: Z08 Encounter for follow-up examination after completed treatment for malignant neoplasm (principal); D12.8 Benign neoplasm of rectum; K63.89 Other specified diseases of intestine; I12.0 Hypertensive chronic kidney disease with stage 5 chronic kidney disease or end stage renal disease; E11.22 Type 2 diabetes mellitus with diabetic chronic kidney disease; N18.6 End stage renal disease; D12.5 Benign neoplasm of sigmoid colon; Z99.2 Dependence on renal dialysis; K74.60 Unspecified cirrhosis of liver; R93.2 Abnormal findings on diagnostic imaging of liver and biliary tract; Z85.038 Personal history of other malignant neoplasm of large intestine; Z80.0 Family history of malignant neoplasm of digestive organs; Z90.49 Acquired absence of other specified parts of digestive tract; Z79.4 Long term (current) use of insulin; Z79.899 Other long term (current) drug therapy; Z98.890 Other specified postprocedural states
CPT/HCPCS: 45380; 45385; 86364; 83540; 83550; 80053; 82728; 85025; 85610; 82948 ×2; 82105; 82390; 82104; 86038; 82103; 80074; 86376; 82784 ×3; 86231 ×2; 83516; 36415; 86015; J7040; J2704; A4215; A4223; A4222; A4221; A4663; J7030; A4606; 86215; 86235; J3490